=== PATIENT | male | born 1955 | race Two or more races ===

== ENCOUNTER 2018-04-15 14:30 | Outpatient (AMBR) | payer MEDICAID, SELFPAY ==
--- NOTE | 2018-04-08 13:33 | PT.ODAYNRPT ---
PT Outpatient Daily Note Date of Service: April 08, 2018 OP Daily Note Visit Reasons: low back pain Outpatient Physical Therapy Treatment Date: 04/08/18 Subjective: pt had no complaints upon visit as he seemed shy. Objective: see flow sheet. Assessment: pt was walking with a little limp on the RLE. he seemed very tensed and needed assistance with bed mobility. used hotpack to relax his back during exercises. not sure if his hands were fatiguing or his LEs during HS stretch because the longer he held the stretch it would decrease his ROM using the strap. advised pt to continue HEP. Plan: continue POC per PT. Length of Time (minutes) of Treatment: 30 Minutes Office Procedures PT Procedures PT Date of Service: 04/08/18 Therapeutic Exercise 30 minutes: Yes
--- NOTE | 2018-04-12 11:13 | PT.ODAYNRPT ---
PT Outpatient Daily Note Date of Service: April 12, 2018 OP Daily Note Visit Reasons: low back pain Outpatient Physical Therapy Treatment Date: 04/12/18 Length of Time (minutes) of Treatment: 30 Minutes Office Procedures PT Procedures PT Date of Service: 04/08/18 Therapeutic Exercise 30 minutes: Yes PT Procedures PT Date of Service: 04/12/18 Therapeutic Exercise 30 minutes: Yes
--- NOTE | 2018-04-12 12:37 | PT.ODAYNRPT ---
PT Outpatient Daily Note Date of Service: April 12, 2018 OP Daily Note Visit Reasons: low back pain Outpatient Physical Therapy Treatment Date: 04/12/18 Subjective: pt reported feeling numbness of the L side ribs. pt denied soreness from last visit. pt is going to have a test (MRI) tomorrow. Objective: see flow sheet. Assessment: pt refused the hotpack prior to ther ex. pt denies pain during ther ex. no facial expressions observed with any exercise indicating no pain or discomfort. pt is able to maintain knee extension during hamstring stretch to both LEs. pt can get in and out of the bed with no difficulty. good ROM during SLR for BLE with no pain. overall pt had no questions. Plan: continue POC per PT. Length of Time (minutes) of Treatment: 30 Minutes Office Procedures PT Procedures PT Date of Service: 04/08/18 Therapeutic Exercise 30 minutes: Yes PT Procedures PT Date of Service: 04/12/18 Therapeutic Exercise 30 minutes: Yes
--- NOTE | 2018-04-15 15:20 | PT.ODS1RPT ---
PT OP Progress/Discharge Note Date of Service: April 15, 2018 Progress Note/DC Note Progress Note/Discharge Note: DC Note Patient Information Visit Reasons: low back pain Medical Diagnosis: M54.5 Treatment Dx #1: Back Pain Service Continue Service or Discharge: Discharge Discharge Date: 04/15/18 Status Subjective: Pt stated that his back feels the same. Pt continues to notice shooting pain and weakness down the left leg. Pt mention that he notice imbalance and inability to control his bladder lately. Pt still has difficulty with prolonged walking, standing, chores, cooking, self care, and performing recreational activities. Objective: L/S AROM: all motions are limited due to pain Hip PROM: all motions are WFL Hip MMTs Glute Med: 3/5 Glute Max: 3/5 Assessment: Pt's overall back symptoms and pain has not change since starting physical therapy leading to continue difficulty with ambulation, dynamic activities, and chores. At this time Pt will no longer benefit from physical therapy due to minimal progression towards functional goals. Pt recently completed his L/S and C/S MRI with significant findings and is consistently with his reported symptoms. Pt was advised to follow up with PCP for further consultation. Pt was not instructed on HEP due to non-beneficial to his symptoms. Pt gave verbal consent and will follow up with PCP next, thank you for your referrals. Plan: D/C home and follow up with PCP Office Procedures PT Procedures PT Date of Service: 04/08/18 Therapeutic Exercise 30 minutes: Yes PT Procedures PT Date of Service: 04/15/18 Therapeutic Exercise 30 minutes: Yes PT Procedures PT Date of Service: 04/12/18 Therapeutic Exercise 30 minutes: Yes
== END 2018-05-07 23:59 | disposition home or self-care (01) ==
PROVIDERS: PCP Physician Assistant; Referring Provider Physician Assistant; Visit Provider Physician Assistant
DX: M54.5 Low back pain (principal); R26.2 Difficulty in walking, not elsewhere classified; R53.1 Weakness
CPT/HCPCS: 97110

== ENCOUNTER 2025-05-14 19:43 | Emergency (ER) | payer MEDICARE, SELFPAY ==
--- NOTE | 2025-05-14 19:46 | EKG_ITS ---
[facility] Test Date: 2025-05-14 Pat Name: CHAPITO RUFFIN Department: Room: - Gender: Male Training Project Manager: : 1955 Requested By: Alexys Houston Order Number: [id number] Reading MD: Alexys Houston Measurements Intervals [place] Rate: 90 P: 45 OK: 158 QRS: -72 QRSD: 88 T: 62 QT: 365 QTc: 448 Interpretive Statements SINUS RHYTHM LEFT AXIS DEVIATION [QRS AXIS < -30] NONSPECIFIC ST ELEVATION [0.05+ mV ST ELEVATION] Compared to ECG 05/31/2019 22:10:27 Ectopic atrial rhythm no longer present ST (T wave) deviation still present /store/S0/[id number]/ecg/[id number].pdf
--- NOTE | 2025-05-14 19:46 | PD.EDADULT ---
ED General RME/HPI General Chief complaint: Abdominal Pain Stated complaint: ABD PAIN Time Seen by Provider: 05/14/25 19:45 Arrival date/time: 05/14/25 19:43 CC: Abdominal pain HPI onset approximate 2:00 this afternoon after having a bowel movement. The patient denies nausea vomiting painful urination bloody urination back pain chest pain or shortness of breath. [facility] calls to report the patient has been complaining of the abdominal pain. EMS reports stable vital signs and route. Related Data Home Medications ?Medication ?Instructions ?Recorded ?Confirmed cyclobenzaprine 5 mg tablet 5 mg PO QHS 04/26/19 06/02/19 meloxicam 15 mg tablet 15 mg PO QDAY 04/26/19 06/02/19 tamsulosin 0.4 mg capsule 0.4 mg PO QDAY 05/08/19 06/02/19 gabapentin 600 mg tablet 600 mg PO BID 06/02/19 06/02/19 Previous Rx's ?Medication ?Instructions ?Recorded ciprofloxacin HCl 500 mg tablet 500 mg PO BID #10 tabs 06/04/19 (Cipro) docusate sodium 100 mg capsule 100 mg PO QDAY #30 caps 05/14/25 (Colace) Allergies Allergy/AdvReac Type Severity Reaction Status Date / Time Penicillins Allergy Intermediate Itching Verified 05/14/25 19:59 Review of Systems Review of Systems Narrative Review of Systems: GEN: No fever, no chills, no weight loss EYES: No discharge, no visual changes, no pain HEENT: No ear pain, no congestion, no sore throat PULM: No shortness of breath, no cough, no congestion CV: No chest pain, no dyspnea on exertion, no palpitations GI: No nausea, no vomiting, no diarrhea, + pain, no constipation : No frequency, no urgency, no dysuria MUSC/SKEL: No joint pain, no back pain SKIN: No rash PSYCH: No hallucinations, no depression HEME/LYMPH: No easy bleeding or bruising tendencies NEURO: No weakness, no headache ED Exam Narrative Physical exam: [General: Not in any acute distress Head normocephalic HEENT: Eyes pupils are PERRLA EOMs are intact mouth pink dry membranes uvula is midline swallow symmetrical phonation is normal. Within acceptable limits Neck is supple nontender Chest equal chest rise nontender to palpation Respiratory: Clear to auscultation no wheezes crackles or rubs CV: Rate rhythm is regular no murmurs rubs or clicks Abdomen is distended secondary to body habitus, firm but not rigid, not tympanic. Nontender no masses hyperactive bowel sounds all 4 quadrants Back: No CVA tenderness no spinous process tenderness from cervical spine thoracic and lumbar spine Skin: Intact no petechiae rash induration ulceration or crepitus Extremities: Right sided flaccidity secondary to the CVA Neuro: Awake alert oriented x3 Glascow coma 15 no focal deficits] Course Quality Measures none Orders Category Date Time Status EKG (ED ONLY) *Do not use* NOW Care 05/14/25 19:46 Completed Insert IV NOW Care 05/14/25 20:[address] abdomen pelvis wo con Stat Exams 05/14/25 19:49 Completed EKG (ED Only) Stat Exams 05/14/25 19:46 Ordered XR small bowel single contrast Stat Exams 05/14/25 20:25 Ordered B-Type Natriuretic Peptide Stat Lab 05/14/25 20:31 Completed CBC Stat Lab 05/14/25 20:31 Received Comprehensive Metabolic Panel Stat Lab 05/14/25 20:31 Completed Drug Screen,Urine Stat Lab 05/14/25 21:01 Completed Lipase Stat Lab 05/14/25 20:31 Completed Magnesium Stat Lab 05/14/25 20:31 Completed Partial Thromboplastin Time Stat Lab 05/14/25 20:31 Completed Prothrombin Time with INR Stat Lab 05/14/25 20:31 Completed Urinalysis, C/S if Indicated Stat Lab 05/14/25 21:01 Completed Vital Signs Vital signs: Vital Signs Temperature 98.6 F 05/14/25 19:54 Pulse Rate 91 05/14/25 19:54 Respiratory Rate 18 05/14/25 19:54 Blood Pressure 130/78 05/14/25 19:54 Pulse Oximetry (%) 97 05/14/25 19:54 Oxygen Delivery Method Room Air 05/14/25 19:54 Discharge Plan Plan Patient Disposition: HOME (Self Care) Patient condition on transfer: Stable Prescriptions/Referrals Prescriptions/Med Rec: New docusate sodium [Colace] 100 mg capsule 100 mg PO QDAY Qty: 30 0RF No Action meloxicam 15 mg tablet 15 mg PO QDAY cyclobenzaprine 5 mg tablet 5 mg PO QHS tamsulosin 0.4 mg Capsule 0.4 mg PO QDAY gabapentin 600 mg Tablet 600 mg PO BID ciprofloxacin HCl [Cipro] 500 mg tablet 500 mg PO BID Qty: 10 0RF Referrals: No Primary/Family,Physician [Primary Care Provider] - In 1 week Michel Joseph MD [Physician, Family Practice] - In 1 week Problem List Clinical Impression: Constipation Patient/Caregiver Discharge Instructions Education Materials: ED Constipation (Adult) Print Language: [place] Stand Alone Forms: Cherie Award Info., Patient Portal Info Letter PA/BUS CLEANER Supervising Physician PA/BUS CLEANER Supervising Physician: Alexys Lynch ENP [facility] Clinical Information Provided by patient and EMS Medical Records Reviewed [facility] and EMS Meds/Rx Considered, not Ordered None Labs/Rad/Tests considered, not Ordered None Chronic Illness/Social Conditions Add or document further as needed: CVA with right-sided hemiaplasia. EKG EKG Interpretation narrative: EKG performed at 2009 shows a ventricular rate of 90 MN interval 158 QRS of 88 QTc of 413. Normal sinus rhythm left axis deviation Lab Interpretation Lab(s) interpretation(s): Urine is turbid but no indication of infection. UTOX is negative CBC shows no acute leukocytosis anemia thrombocytopenia CMP shows sodium of 130. No other significant electrolyte imbalances glucose of 107. No transaminitis or T. bili elevation. BNP is 51 Lipase is 39 Imaging Provider imaging interpretation(s): CT of the abdomen shows a large amount of stool no obstruction. Radiology reports / interpretation(s): Patient we discharged home with constipation. Diagnosis Differential diagnosis: Constipation obstipation ileus Dispositon Disposition: Discharge Home
--- NOTE | 2025-05-14 19:49 | XR_ITS ---
Examination: CT abdomen and pelvis without contrast. Coronal 3-D reconstructions. Sagittal 2-D reconstructions. Date and time of exam:May 14, [id number], 2003 hrs. Today, comparison 06/01/2019 Indications: Abdominal pain and distention CTDI: vol (mGy): 11.5 DLP: (mGycm): 767 Technique: Axial images of the abdomen have been obtained, 3 mm slice thickness Intravenous contrast material has not been administered. Low dose protocols were performed. One or more of the following dose reduction techniques were used; automated exposure control, adjustment of the mA and/or KV according to patient size, use of iterative reconstruction technique. Findings: No focal liver or splenic lesion No gallstones No pancreatic or adrenal mass. No hydronephrosis Abundant air and stool throughout the colon especially right colon No pericecal inflammatory change Small bladder calculi No significant prostatomegaly Severe osteopenia Impression: Large amounts of stool in the right colon No obstruction No CT findings of appendicitis
[2025-05-14 19:52] VITALS: PULSE 83; RESP 12; O2SAT 98; BMI 24.1
[2025-05-14 19:54] VITALS: BP 130/78; PULSE 91; RESP 18; TEMP 37; O2SAT 97; BMI 23.3
--- NOTE | 2025-05-14 20:25 | XR_ITS ---
Examination: Small bowel series AP abdomen 3 views Date and time: May 14, 2025, 2049 hrs. Indications: Abdominal pain and distention this week Technique And Findings: Patient received 120 cc Gastrografin, 1 minute 30 minute one hour films obtained which demonstrate contrast in the stomach Large amounts of stool throughout the entire colon Impression: Large amounts of stool throughout the entire colon
[2025-05-14 21:05] LABS: Collection Type, Urine Clean Catch
[2025-05-14 21:08] LABS: INR 1.0 (0.9-1.3); Partial Thromboplastin Time 25.8 Seconds (22.0-36.0); Prothrombin Time 10.6 Seconds (9.0-12.2)
[2025-05-14 21:10] LABS: Bilirubin,Urine Negative (Negative); Blood,Urine Negative (Negative); Clarity,Urine Turbid (Clear/Hazy); Color,Urine Lt-Yellow (Lt Yel-Yel); Culture Indicated,Urine Not Indicated; Glucose, Urine Negative (Negative); Ketones,Urine Negative (Negative); Leukocyte Esterase,Urine Negative (Negative); Nitrite,Urine Negative (Negative); PH,Urine 6.5 (5.0-7.0); Protein,Urine Negative (Neg - Trace); RBC,Urine 2 /hpf (0-3); Specific Gravity,Urine 1.013 (1.001-1.035); Squamous Epithelial Cell,Urine < 1 /hpf (0-5); Urobilinogen,Urine Negative mg/dL (0.0-1.0); WBC,Urine 5 /hpf (0-5)
[2025-05-14 21:16] LABS: Amphetamine/Methamp Scrn,U Negative (Negative); Barbiturate Screen,Urine Negative (Negative); Benzodiazepines Screen,Urine Negative (Negative); Benzoylecgonine Screen, Ur Negative (Negative); Fentanyl Screen,Urine Negative (Negative); Opiate Screen,Urine Negative (Negative); THC Screen,Urine Negative (Negative)
[2025-05-14 21:21] LABS: B-Type Natriuretic Peptide 51 pg/mL (0-100)
[2025-05-14 21:30] LABS: Alanine Aminotransferase 16 U/L (10-49); Albumin, Serum 4.3 gm/dL (3.4-4.8); Albumin/Globulin Ratio 1.5 (1.2-2.2); Alkaline Phosphatase 143 U/L (46-116); Anion Gap 11 (7-16); Aspartate Amino Transferase 18 U/L (0-34); BUN/Creatinine Ratio 24 Ratio (12-20); Bilirubin,Total 0.3 mg/dL (0.3-1.2); Blood Urea Nitrogen 17 mg/dL (9-23); Calcium 9.6 mg/dL (8.3-10.6); Calcium (Corrected) 9.6 mg/dL (8.5-10.1); Carbon Dioxide 19.9 mMol/L (20.0-31.0); Chloride 99 mMol/L (98-107); Creatinine (Component) 0.7 mg/dL (0.6-1.3); Estimated Creatinine Clearance 85.4 mL/min (>60); Globulin 2.9 gm/dL (2.3-3.5); Glucose 107 mg/dL (74-106); Lipase 39 U/L (12-53); Magnesium 2.2 mg/dL (1.6-2.6); Osmolality,Calculated 262 (275-295); Potassium 4.5 mMol/L (3.4-5.1); Sodium 130 mMol/L (136-145); Total Protein 7.2 gm/dL (5.7-8.2); eGFR > 60 See Note
[2025-05-14 22:44] LABS: Basophils # (Auto) 0.1 Thou/mm3 (0.0-0.2); Basophils % (Auto) 0 % (0-2.5); Eosinophils # (Auto) 0.1 Thou/mm3 (0.0-0.5); Eosinophils % (Auto) 0 % (0-10); Hematocrit 38.5 % (41.0-53.0); Hemoglobin 12.9 g/dL (13.5-16.0); Immature Granulocytes Auto 0.17 Thou/mm3 (0.00-0.00); Lymphocytes # (Auto) 2.7 Thou/mm3 (1.0-4.8); Lymphocytes % (Auto) 14 % (10-50); Mean Corpuscular HGB Conc 33.5 g/dl (31.0-37.0); Mean Corpuscular Hemoglobin 25.8 pg (25.0-35.0); Mean Corpuscular Volume 77 fL (80-100); Monocytes # (Auto) 1.3 Thou/mm3 (0.0-0.8); Monocytes % (Auto) 7 % (0-12); Neutrophils # (Auto) 14.7 Thou/mm3 (1.8-7.7); Neutrophils % (Auto) 77 % (37-80); Nucleated Red Blood Cell # 0.00 Thou/mm3 (0.00-0.00); Nucleated Red Blood Cell % 0 /100 WBC (0); Platelet Count 461 Thou/mm3 (140-440); RDW Standard Deviation 43.2 fL (35.1-43.9); Red Blood Count 5.00 Miln/mm3 (4.50-5.90); White Blood Count 18.9 Thou/mm3 (3.8-10.6)
[2025-05-14 23:20] VITALS: RESP 17; O2SAT 98
== END 2025-05-14 23:28 | disposition home or self-care (01) ==
PROVIDERS: Registered Nurse General Practice; Emergency Provider Emergency Medicine
DX: R10.9 Unspecified abdominal pain (principal); K59.00 Constipation, unspecified
CPT/HCPCS: 36415; 74176; 74250; 80053; 80307; 81001; 83690; 83735; 83880; 85025; 85610; 85730; 93005; 99284; Q9963